=== PATIENT | male | born 2000 | race Caucasian/White ===

== ENCOUNTER 2018-08-15 12:44 | Emergency (ER) | payer OTHER, SELFPAY ==
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
[2018-08-15 14:34] VITALS: TEMP 98.7
[2018-08-15 14:35] VITALS: BP 118/72; O2SAT 99
== END 2018-08-15 14:29 | disposition home or self-care (01) ==
LOC: ER 12:44
DX: M25.532 Pain in left wrist (principal); M79.604 Pain in right leg; V03.99XA Pedestrian with other conveyance injured in collision with car, pick-up truck or van, unspecified whether traffic or nontraffic accident, initial encounter
CPT/HCPCS: 72170; 99282